=== PATIENT | male | born 1995 | race African-American/Black ===

== ENCOUNTER 2020-01-31 11:07 | Emergency (ER) | payer OTHER, SELFPAY ==
[2020-01-31 11:26] VITALS: BP 100/59; PULSE 84; RESP 16; TEMP 37; O2SAT 98
--- NOTE | 2020-01-31 11:42 | ED.GENADULT ---
HPI - General Adult General Chief complaint: Urogenital-Male <NABIL Torres - Last Filed: 02/05/20 04:16> Stated complaint: urinary/burning <NABIL Torres - Last Filed: 02/05/20 04:16> Time Seen by Provider: 01/31/20 11:42 <NABIL Torres - Last Filed: 02/05/20 04:16> Source: patient and RN notes reviewed <NABIL Torres - Last Filed: 02/05/20 04:16> Mode of arrival: ambulatory <NABIL Torres - Last Filed: 02/05/20 04:16> Limitations: no limitations <NABIL Torres - Last Filed: 02/05/20 04:16> History of Present Illness HPI narrative: 24-year-old -[place] male presents with urinary complaints and possible STD for the past 2-3 days . Dysuria consist of burning and frequency. No treatment. History of Gonorrhea (GC). Denies fever or chills. Denies nausea, vomiting, and abdominal pain. No significant penile pain. No penile discharge. Concern for STDs due to white-yellow discharge and recently had unprotected intercourse. Denies unprotected intercourse with multiple partners. No flank pain. Exacerbating factor consist of urinating. Denies hematuria or unusual penile bleeding. Tolerating liquids well. Remains active. Some parts of this dictation were generated by voice recognition software and may contain typographical and/or grammatical inaccuracies. <NABIL Torres - Last Filed: 02/05/20 04:16> Related Data Allergies/adverse reactions: Allergies Allergy/AdvReac Type Severity Reaction Status Date / Time No Known Allergies Allergy Verified 01/31/20 11:29 <NABIL Torres - Last Filed: 02/05/20 04:16> Review of Systems Review of Systems: Narrative: CONSTITUTIONAL: Denies fever, chills, sweats. EYES: Denies visual changes, redness, discharge. ENT: Denies rhinorrhea, congestion, sore throat, otalgia. CARDIOVASCULAR: Denies chest pain, palpitations, edema. RESPIRATORY: Denies dyspnea, wheezing, cough GASTROINTESTINAL: Denies abdominal pain, nausea, vomiting, diarrhea. GENITOURINARY: Denies itching, hematuria. Complains of possible STI, dysuria, genital discharge and dysuria. SKIN: Denies rash or itching. MUSCULOSKELETAL: Denies acute back pain, joint pain, or myalgia. NEUROLOGIC: Denies numbness, or focal weakness. PSYCHIATRIC: Denies anxiety or depression. All systems reviewed & are unremarkable except as noted in HPI and below. <NABIL Torres - Last Filed: 02/05/20 04:16> [facility] Past Medical History Medical History: Medical History (Updated 02/01/20 @ 00:00 [facility] No significant past medical history <NABIL Torres - Last Filed: 02/05/20 04:16> Surgical History Surgical History: Surgical History (Updated 01/31/20 @ 11:56 by NABIL Torres) No significant past surgical history <NABIL Torres - Last Filed: 02/05/20 04:16> Family History Family History: Family History (Updated 01/31/20 @ 11:58 by NABIL Torres) Mother Alive and well Father Alive and well <NABIL Torres - Last Filed: 02/05/20 04:16> Social History Social History: Social History (Updated 01/31/20 @ 11:59 by NABIL Torres) Smoking status: Never smoker Tobacco type: cigarettes Second hand tobacco smoke exposure: Yes Alcohol intake: current Alcohol use details: occasional Substance use: current Substance use type: marijuana Living arrangements: with family Occupation/Education: occupation Gender identity (if verbalized by the patient): Male <NABIL Torres - Last Filed: 02/05/20 04:16> Comments At time of signature, agree with nurse past medical, surgical, social, and family history. There is no relevant family history pertinent to the presenting complaint. <NABIL Torres - Last Filed: 02/05/20 04:16> Exam Narrative: Exam Narrative: GENERAL: This is a
[2020-01-31] MEDS: cefTRIAXone 250 MG VIAL IM (12:03)
[2020-01-31] MEDS: AZITHROMYCIN 250 MG TABLET 1000 MG PO (12:03)
[2020-01-31] MEDS: LIDOCAINE HCL 1% LOCAL INJ 20 ML VIAL INFILTRATE (12:04)
== END 2020-01-31 12:26 | disposition home or self-care (01) ==
PROVIDERS: Emergency Provider Nurse Practitioner Family
DX: R30.0 Dysuria (principal); Z11.3 Encounter for screening for infections with a predominantly sexual mode of transmission
CPT/HCPCS: 81003; 87086; 87491; 87591; 87661; 96372; 99203; A9270; G0463; J0696